=== PATIENT | male | born 1980 | race African-American/Black ===

== ENCOUNTER 2019-06-15 21:12 | Emergency (ER) | payer MEDICAID, OTHER ==
[~2019-06-15] VITALS: Ht 165.1 cm; Wt 65.8 kg
[2019-06-15 21:22] VITALS: BP 118/101
--- NOTE | 2019-06-15 22:25 | NUR ---
XAVIER C/O CONSTIPATION X 1 DAY. PATIENT STATES TOOK PROVIGIL TO STAY UP WHICH CAUSED THE CONSTIPATION. LBM: YESTERDAY
[2019-06-15] MEDS ORDERED: GLYCERIN ADULT 1 SUPP.RECT RC ONE (22:30)
[2019-06-15] MEDS ORDERED: GLYCERIN CHILD (PED) SUPP 1 SUPP.RECT RC ONE (22:32)
[2019-06-15] MEDS ORDERED: MINERAL OIL 133 ML (PYXIS) 1 EA ENEMA RC ONE ×2 (22:35→23:00)
--- NOTE | 2019-06-15 22:38 | NUR ---
GELATYN SUPP. WAS NOT ADMINISTERED IT WAS D/C'D BY AND CHANGED TO ENEMA.
--- NOTE | 2019-06-16 00:05 | NUR ---
Patient discharged to home in stable condition. Rx and Written and verbal after care instructions given. Patient verbalizes understanding of instruction.
== END 2019-06-16 00:06 | disposition home or self-care (01) ==
LOC: ER 21:15
DX: K59.00 Constipation, unspecified (principal); F17.210 Nicotine dependence, cigarettes, uncomplicated; Z98.890 Other specified postprocedural states; Z60.2 Problems related to living alone; Z85.818 Personal history of malignant neoplasm of other sites of lip, oral cavity, and pharynx